=== PATIENT | female | born 1950 | race Caucasian/White ===

== ENCOUNTER 2019-07-03 08:15 | Inpatient (IN) | payer OTHER ==
[~2019-07-03] VITALS: Ht 157.5 cm; Wt 99.8 kg
[~2019-07-03 08:15] MED LIST: ULTRACET PO; XARELTO10 MG PO
[2019-07-04] MEDS ORDERED: HYZAAR 100-251 EACH PO (09:45)
[2019-07-04] MEDS ORDERED: CARDURA XL4 MG PO (09:45)
[2019-07-04] MEDS ORDERED: PROPAFENONE PO (09:46)
[2019-07-04] MEDS ORDERED: CRESTOR10 MG PO (09:46)
[2019-07-04] MEDS ORDERED: CYMBALTA60 MG PO (09:46)
[2019-07-04] MEDS ORDERED: SINGULAIR10 MG PO (09:47)
[2019-07-04] MEDS ORDERED: DICLOFENAC SODI50 MG PO (09:47)
[2019-07-04] MEDS ORDERED: PAMELOR25 MG PO (09:47)
[2019-07-04] MEDS ORDERED: ALLEGRA ALLERG180 MG PO (09:48)
[2019-07-04] MEDS ORDERED: ZANTAC150 M3 PO (09:48)
[2019-07-09] MEDS ORDERED: PROPAFENONE HC150 MG PO (08:06)
[2019-07-12] MEDS ORDERED: INTEGRA PLUS C1 EACH PO (07:47)
[2019-07-12] MEDS ORDERED: XARELTO10 MG PO (07:47)
[2019-07-12] MEDS ORDERED: BACTRIM DS TAB1 EACH PO (07:47)
[2019-07-12] MEDS ORDERED: OXYC1TAB9 PO (07:47)
== END 2019-07-12 11:03 | DRG 470 ==
LOC: O/R 08:15 → SURG 07-09 05:40 → SURH 07-09 07:00 → SURG 07-09 14:45
PROVIDERS: ADMIT Orthopaedic Surgery Sports Medicine
PROC: 0SRC0J9 Replacement of Right Knee Joint with Synthetic Substitute, Cemented, Open Approach (ICD-10-PCS; principal; 2019-07-09 07:00)
PROC: B54DZZZ Ultrasonography of Bilateral Lower Extremity Veins (ICD-10-PCS; 2019-07-11)
DX: M17.11 Unilateral primary osteoarthritis, right knee (principal); I10 Essential (primary) hypertension; E78.49 Other hyperlipidemia; I87.2 Venous insufficiency (chronic) (peripheral)

== ENCOUNTER 2025-01-22 05:26 | Day surgery (SDC) | payer OTHER ==
[2025-01-16 11:06] VITALS: BP 100/72
[~2025-01-22] VITALS: Ht 162.6 cm; Wt 105.7 kg
[~2025-01-22 05:26] MED LIST changes: +ALLEGRA ALLERG180 MG PO; +AVALIDE 300-121 EACH; +BACTRIM DS TAB1 EACH PO; +CARDURA XL4 MG PO; +CRESTOR10 MG PO; +CYMBALTA60 MG PO; +DICLOFENAC SODI50 MG PO; +HORIZANT600 MG PO; +HYZAAR 100-251 EACH PO; +INTEGRA PLUS C1 EACH PO; +LIPITOR40 MG PO; +OXYC1TAB9 PO; +PAMELOR25 MG PO; +PEPCID AC20 MG; +PRILOSEC OTC20 MG PO; +PROPAFENONE HC150 MG PO; +PROPAFENONE PO; +SINGULAIR10 MG PO; +ZANTAC150 M3 PO
[2025-01-22] MEDS ORDERED: GENTAMICIN SULFATE 40 MG/ML VIAL ONE (07:13)
[2025-01-22] MEDS ORDERED: LIDOCAINE HCL 1%/EPINEPHRINE 20ML VIAL IJ ONE (07:13)
[2025-01-22] MEDS ORDERED: CHLORHEXIDINE GLUCONATE 120 ML BOTTLE TOP ONE (07:13)
[2025-01-22] MEDS ORDERED: CEFAZOLIN SODIUM 1,000 MG VIAL ONE (07:14)
[2025-01-22] MEDS ORDERED: LIDOCAINE HCL 1% 20 ML VIAL IJ ONE ×2 (07:50→08:37)
[2025-01-22] MEDS ORDERED: POVIDONE-IODINE 118 ML BOTT TOP ONE (08:11)
[2025-01-22] MEDS ORDERED: TRAM1TAB98 PO (10:05)
[2025-01-22] MEDS ORDERED: LEVOFLOXACIN250 MG PO (10:05)
== END 2025-01-22 12:00 | disposition home or self-care (01) ==
LOC: CIR.AMB 05:26
PROVIDERS: ATTEND Obstetrics & Gynecology Gynecology
DX: R15.9 Full incontinence of feces (principal); N32.81 Overactive bladder; N39.41 Urge incontinence; I10 Essential (primary) hypertension; E78.5 Hyperlipidemia, unspecified; J45.909 Unspecified asthma, uncomplicated; M19.90 Unspecified osteoarthritis, unspecified site; M79.7 Fibromyalgia; G47.30 Sleep apnea, unspecified
CPT/HCPCS: 64581; 64590; 95972; C1767; C1778